=== PATIENT | male | born 1990 | race Caucasian/White ===

== ENCOUNTER 2017-03-06 21:00 | Inpatient (IN) | payer OTHER ==
[~2017-03-06] VITALS: Ht 170.2 cm; Wt 63.3 kg
[~2017-03-06 21:00] MED LIST: ABILIFY10 MG PO; ALEVE220 MG PO; AUGMENTIN500 MG PO; CARAFATE1 GM PO; CATAPRES0.3 MG PO; IBUPROFEN800 MG PO; KLONOPIN0.5 M1 PO; METHYLPHENIDATE; NAPROSYN500 MG PO; NAPROXEN500 MG PO; NOHOMEMEDS; OMEPRAZOLE20 M2 PO; PERIDEX1 ML MM; PRILOSEC20 MG PO; PROZAC20 MG PO; RISPERDAL0.5 MG PO; RITALIN SR, MET20 MG PO; RITALIN10 MG PO; RITALIN20 MG PO; ROBITUSSIN AC,T10 ML PO; TOPAMAX25 M1 PO; TRAMADOL HCL50 MG PO; ULTRAM50 MG PO
[2017-03-06 22:30] LABS: AMPHETAMINE NEGATIVE (500 ng/mL); BARBITURATES NEGATIVE (200 ng/mL); BENZODIAZEPINES NEGATIVE (150 ng/mL); COCAINE NEGATIVE (150 ng/mL); METHADONE NEGATIVE (200 ng/mL); METHAMPHETAMINE NEGATIVE (500 ng/mL); OPIATES (MORPHINE) NEGATIVE (100 ng/mL); PHENCYCLIDINE NEGATIVE (25 ng/mL); THC CANNABINOIDS NEGATIVE (50 ng/mL); TRICYCLIC ANTIDEPRESSANTS NEGATIVE (300 ng/mL)
[2017-03-06 22:31] LABS: INTERNAL CONTROLS VALID? YES; OXYCODONE NEGATIVE (100 ng/mL); PROPOXYPHENE NEGATIVE (300 ng/mL)
[2017-03-06 22:34] LABS: EOSINOPHIL (%) 1.2 % (0-5); EOSINOPHIL COUNT 0.1 K/uL (0-0.3); IMMATURE GRANULOCYTE (%) 0.3 % (0.0-0.7); INSTRUMENT ABS NEUTROPHIL CT 4.6 K/uL; LYMPHOCYTE COUNT 2.2 K/uL (1.0-2.8); MCH 28.5 PG (29.0-34.0); MCHC 34.5 G/DL (30.0-36.0); MCV 82.6 FL (86-99); MEAN PLAT.VOLUME 9.4 uM^3 (9.0-12.4); MONOCYTE COUNT 0.7 K/uL (0-0.8); NEUTROPHIL (%) 60.4 % (45-76); NEUTROPHIL COUNT 4.6 K/uL (1.8-6.4); PLATELET COUNT 264 K/uL (156-360); RBC DIS.WIDTH-CV 12.5 % (11.8-14.6); RBC DIS.WIDTH-SD 37.7 % (39-53); RED BLOOD COUNT 4.84 M/uL (4.00-5.50); WHITE BLOOD COUNT 7.6 K/uL (4.1-10.2)
[2017-03-06 22:46] LABS: CHLORIDE 109 mEq/L (99-109); POTASSIUM 3.7 mEq/L (3.7-5.4); SODIUM 139 mEq/L (136-147)
[2017-03-06 22:48] LABS: GLUCOSE 98 mg/dL (70-99)
[2017-03-06 22:49] LABS: ANION GAP 10 MEQ/L (2-14)
[2017-03-06 22:51] LABS: SERUM ETHYL ALCOHOL < 10 mg/dL
[2017-03-06 22:52] LABS: GFR ESTIMATE (CALCULATED) > 59 mL/min/; UREA NITROGEN (BUN) 10 mg/dL (9-23)
[2017-03-07 01:00] VITALS: BP 140/80
[2017-03-07 07:46] VITALS: BP 118/79
[2017-03-07 15:44] VITALS: BP 116/64
[2017-03-08 07:35] VITALS: BP 99/51
[2017-03-08 16:21] VITALS: BP 118/57
[2017-03-09 07:35] VITALS: BP 93/55
[2017-03-09 15:02] VITALS: BP 123/60
[2017-03-10 07:52] VITALS: BP 96/55
[2017-03-10] MEDS ORDERED: FLUOXETINE HCL20 MG PO (09:53)
[2017-03-10] MEDS ORDERED: RISPERIDONE1 MG PO (09:53)
[2017-03-10] MEDS ORDERED: CLONIDINE HCL0.2 MG PO (09:53)
== END 2017-03-10 14:15 | disposition home or self-care (01) | DRG 883 ==
LOC: EME 21:00 → EDOF 23:10 → 1WEST 23:10 → ENRESERV 03-07 00:40 → 1WEST 03-07 00:50
PROVIDERS: Emergency Medicine
DX: F63.81 Intermittent explosive disorder (principal); F31.9 Bipolar disorder, unspecified; F90.9 Attention-deficit hyperactivity disorder, unspecified type; F84.0 Autistic disorder; F70 Mild intellectual disabilities; F51.04 Psychophysiologic insomnia
CPT/HCPCS: 80048; 85025; 90837; 97150 GO; 97165 GO; 99281; 99285; G0480

== ENCOUNTER 2017-05-04 19:05 | Emergency (ER) | payer OTHER ==
[~2017-05-04] VITALS: Ht 170.2 cm; Wt 62.9 kg
[~2017-05-04 19:05] MED LIST changes: +CLONIDINE HCL0.2 MG PO; +FLUOXETINE HCL20 MG PO; +RISPERIDONE1 MG PO
[2017-05-04 20:47] LABS: HEMATOCRIT 46.7 % (38.0-50.0); MCH 28.4 PG (29.0-34.0); MCHC 33.8 G/DL (30.0-36.0); MCV 83.8 FL (86-99); MEAN PLAT.VOLUME 9.2 uM^3 (9.0-12.4); PLATELET COUNT 354 K/uL (156-360); RBC DIS.WIDTH-CV 13.1 % (11.8-14.6); RBC DIS.WIDTH-SD 39.8 % (39-53); RED BLOOD COUNT 5.57 M/uL (4.00-5.50); WHITE BLOOD COUNT 10.9 K/uL (4.1-10.2)
[2017-05-04 20:55] LABS: CHLORIDE 101 mEq/L (99-109); POTASSIUM 3.1 mEq/L (3.7-5.4); SODIUM 143 mEq/L (136-147)
[2017-05-04 20:58] LABS: GLUCOSE 118 mg/dL (70-99)
[2017-05-04 20:59] LABS: ANION GAP 14 MEQ/L (2-14)
[2017-05-04 21:00] LABS: TOTAL BILIRUBIN 0.5 mg/dL (0.0-1.0)
[2017-05-04 21:01] LABS: ALKALINE PHOSPHATASE 91 IU/L (3-129); GFR ESTIMATE (CALCULATED) > 59 mL/min/
[2017-05-04 21:02] LABS: UREA NITROGEN (BUN) 9 mg/dL (9-23)
[2017-05-04 21:05] LABS: LIPASE 15 U/L (1.0-51.0)
[2017-05-04 21:10] LABS: ADD MIUA? YES; BILIRUBIN NEGATIVE; BLOOD NEGATIVE; COLOR YELLOW ((YELLOW)); GLUCOSE (STRIP) NEGATIVE; KETONES 20; LEUKOCYTES NEGATIVE; NITRITE NEGATIVE; PROTEIN (STRIP) 100; SPECIFIC GRAVITY 1.024 (1.000-1.030)
[2017-05-04 21:20] LABS: BACTERIA NONE SEEN /HPF; EPITHELIAL CELLS NONE SEEN /HPF; MUCUS TRACE /LPF; UCUL ADDED? YES
[2017-05-04] MEDS ORDERED: ZOFRAN ODT4 MG PO (21:48)
[2017-05-04 22:00] VITALS: BP 122/67
== END 2017-05-04 22:01 | disposition home or self-care (01) ==
LOC: EME 19:05
PROVIDERS: Physician Assistant
DX: R11.2 Nausea with vomiting, unspecified (principal); R19.7 Diarrhea, unspecified; R10.10 Upper abdominal pain, unspecified; F84.0 Autistic disorder
CPT/HCPCS: 80053; 81003; 83690; 85027; 87086; 99281; 99285; J2405; J7030; S0028